=== PATIENT | male | born 1940 | race Caucasian/White ===

== ENCOUNTER 2019-12-13 14:08 | Day surgery (SDC) | payer OTHER, SELFPAY ==
[2019-12-09 07:38] VITALS: BMI 28.3
[2019-12-13] VITALS (12 sets, daily range): BP systolic 122–164; BP diastolic 55–89; PULSE 67–85; RESP 12–20; TEMP 36.1–36.8; O2SAT 95–100; BMI 27.0
--- NOTE | 2019-12-13 13:10 | PM.PREOP ---
Pre-operative Note Interval Note History & Physical reviewed/Exam performed by Physician: Yes Changes to H&P: No H&P completed within 30 days and has changed as indicated here:: History and physical examination is without change on file.
[2019-12-13] MEDS: LACTATED RINGERS 1,000 ML 42 ML IV ×2 (14:54→19:18)
[2019-12-13] MEDS: CELECOXIB 200 MG CAPSULE 400 MG PO (14:54)
[2019-12-13] MEDS: ACETAMINOPHEN 325 MG TABLET 975 MG PO (14:55)
[2019-12-13] MEDS: GABAPENTIN 300 MG CAPSULE PO (14:55)
[2019-12-13] MEDS: CEFAZOLIN 2 GM/100 ML FROZ.PIGGY IV (18:27)
--- NOTE | 2019-12-13 19:00 | SUR.OPER ---
Lithotomy on padded OR bed, head on pillow, arms secured on padded arm boards at <90 degrees abduction. Legs secured in padded yellow fins stirrups.
[2019-12-13] MEDS: BELLADONNA/OPIUM SUPPOSITORIES 1 EACH PR (19:47)
--- NOTE | 2019-12-13 20:05 | P.OP_ITS ---
Operative Date/Time/Diagnoses Date of procedure: 12/13/19 Time of procedure: 20:05 Pre-op diagnosis: 1. Urinary retention. 2. Recurring UTI. Post-op diagnosis: same Procedure & Clinicians Procedure: Transurethral resection of prostate Same procedure as scheduled: Yes Indications: 1. Urinary retention 2. Recurrent UTI Surgeon: Humberto Mcfadden Click Yes if Unassisted: Yes Anesthesia Type: General Operative Notes Findings: Urethra normal caliber no strictures. External sphincter coapted. 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 Bladder 2+ trabeculation normal orifices bilaterally. No definite evidence of recurrence bladder tumor patient's known history of of a superficial low-grade urothelial carcinoma. Orifices normal bilaterally. Closure Type: not applicable Specimen(s): other (Resected prostatic chips) Applied: catheter (# [address] irrigation catheter) Estimated Blood Loss (mL): 10 Blood products transfused: none Tourniquet time (min): 0 Procedure in detail: The patient was positioned supine and was administered general anesthesia. He was then repositioned in semi lithotomy in the lower abdomen genitalia and groin were then prepped and draped in sterile fashion. The 25 [address] resectoscope was then advanced lower urinary tract with the findings as described above. The scope was then fitted with the the resecting the working element. Resection of the prostate was undertaken by making the deep incisions at the 1 and 11:00 a.m. positions bilaterally the intervening anterior tissue was then resected from the bladder neck to an area in the vicinity of the verumontanum. Next the lateral lobes were resected in succession left followed by the right. Finally the median lobe was taken down from the bladder neck to the verumontanum apical tissue was purposely left circumferentially. All chips and clots were gathered and submitted to pathology for routine gross and microscopic examination. Bladder was then left partially filled and the scope was removed a [address] Sanders catheter was then inserted the balloon inflated to 30 cc. The catheter was irrigated clear and then attached to normal saline continuous bladder irrigation. The patient was then repositioned supine was awakened transferred to [facility] and transferred recovery in stable condition. Complications: none (The patient was positioned in) Post-operative Condition: stable Disposition: PACU Plan for aftercare: Admit to acute care
[2019-12-13] MEDS: OXYCODONE IR 5 MG TABLET PO (20:23)
[2019-12-13] MEDS: LACTATED RINGERS 1,000 ML 125 ML IV (21:55)
[2019-12-14] MEDS: SODIUM CHLORIDE IRRIG SOLUTION 3,000 ML 3000 ML IRR ×7 (00:25→06:47)
[2019-12-14 02:00] VITALS: O2SAT 95
[2019-12-14] MEDS: LACTATED RINGERS 1,000 ML 125 ML IV (04:43)
[2019-12-14 06:00] VITALS: O2SAT 95
[2019-12-14] MEDS: KETOROLAC 10 MG TABLET PO (06:49)
--- NOTE | 2019-12-14 07:24 | P.DS_ITS ---
History of Present Illness History of Present Illness Chief complaint: [id number] TURP *OPB* Discharge Providers Provider Discharge Date: 12/14/19 Primary care physician: Michael Carroll Consults: 12/13/19 20:12 Consult to Discharge Planning Routine Comment: Discharge provider: Humberto Mcfadden MD Summary Hospital Course Discharge Diagnosis: 1. Urinary retention. 2. Recurrent urinary tract infection. Hospital Course: The patient was admitted on the afternoon of 12/13/2019, and underwent uncomplicated transurethral resection of the prostate under general anesthesia. His immediate postoperative night and morning of the 1st postoperative day 1 were unremarkable. He has been minimal complain of discomfort or pain and is tolerating oral without issue. Catheter outflow rem ained clear with oral fluids and a decreasing bladder irrigation inflow. On 12/14/2019 he stable for discharge and pathology is pending. Status at Discharge Cognitive/behavioral status at discharge: oriented Functional status at discharge: independent ambulation Overall status at discharge: patient is back to baseline Exam Vital Signs (past 8 hours): - 12/13/19 23:45 12/14/19 02:00 12/14/19 06:00 Temperature 97.6 F Pulse Rate 74 Respiratory Rate 16 Blood Pressure 122/69 Pulse Oximetry 97 95 95 Oxygen Delivery Method Room Air Oxygen Flow Rate 0 Narrative Exam Narrative: The patient is afebrile and vital signs are stable and were stable throughout the night. He is sitting upright in bed awake and alert and conversant and in no acute distress. Abdomen is soft and without distention or tenderness. Catheter is intact and three-way outflow is very light pink with no clots. Extremities no pallor edema clubbing or cyanosis. Discharge Plan Discharge Med Rec/Prescriptions Prescriptions: No Action terazosin 5 mg Capsule 5 mg PO BEDTIME RF: 0 losartan 25 mg Tablet 50 mg PO DAILY RF: 0 finasteride 5 mg Tablet 5 mg PO DAILY RF: 0 Discharge Data Primary Care Provider: Michael Carroll Attending Provider: Humberto Mcfadden
[2019-12-14 08:34] VITALS: BP 114/65; PULSE 68; RESP 16; TEMP 36.6; O2SAT 97
--- NOTE | 2019-12-14 09:13 | CM.DANOTE ---
DCP: Case received, EMR reviewed and met with patient. Introduced self and role. Was able to meet with patient in his room to obtain information regarding baseline health and activity level. DCP assessment completed with information currently available. Patient is an 79 year old male who admitted yesterday morning to the care of the hospitalist/surgical team. PCP: Dr. Carroll. Payer: confirmed: [facility]. Patient came to the hospital for a surgical procedure. He had a transurethral resection. Met with patient in his room. He is alert and oriented. Patient resides in [place] with his spouse, Neisha. P: Patient is to be discharged home today. He will go home with catheter, and follow up in urology office on Thursday. Hallie Leroy RN/Slasher Tender
--- NOTE | 2019-12-14 14:11 | PC.NURSE ---
Pt instructed on Catheter care, including changing leg bag/large bag, sterile technique, emptying bags and s/sx of infection; pt's in room for instruction; shanice-care and morrison care prior to d/c; Pt reminded to use JENNY hose at home when less-active, ankle waves and IS; d/c instructions included Rx medications, f/u care; all [facility] supplies explained and packed in bag for home use; pt escorted via wheelchair to personal vehicle.
== END 2019-12-14 11:00 | disposition home or self-care (01) ==
LOC: OR 14:13 → AC 14:16
PROVIDERS: PCP Family Medicine; Referring Provider Specialist; Visit Provider Specialist
PROC: 0VT08ZZ Resection of Prostate, Via Natural or Artificial Opening Endoscopic (ICD-10-PCS; CPT 52601; principal; 2019-12-13 15:30)
DX: N40.1 Benign prostatic hyperplasia with lower urinary tract symptoms (principal); R33.8 Other retention of urine; N39.0 Urinary tract infection, site not specified; Z85.51 Personal history of malignant neoplasm of bladder
CPT/HCPCS: 52601; 87086; J0690; J1100; J2405; J2704; J3010